=== PATIENT | female | born 1955 | race Caucasian/White ===

== ENCOUNTER → 2017-07-29 11:37 | Outpatient (CLI) | payer MEDICARE, SELFPAY ==
--- NOTE | 2017-07-29 11:37 | DT_ITS ---
This patient was seen during an EMR downtime July 28, 2017 - August 04, 2017. This patient may have a combination of paper and electronic documentation or all paper documentation. All documentation is viewable within the e-chart portion of [facility] for each patient visit.
[2017-08-04 17:49] LABS: Creatinine, Serum 0.49 mg/dL (0.55-1.02); EST Glomerular Filtration Rate 137 mL/min (>60); Est Glom Filt Rate - Afr Amer 166 mL/min (>60); Hematocrit 37.3 % (37-47); Hemoglobin 11.6 g/dl (12.0-15.0); Mean Corp Hgb Conc 31.1 g/gl (32-36); Mean Corpuscular Hgb 28.6 pg (27.0-32.0); Mean Corpuscular Volume 91.9 fL (81-99); Mean Platelet Vol. 11.3 fl (6.2-12.0); POSITIVE COUNT NO; POSITIVE DIFFERENTIAL NO; POSITIVE MORPHOLOGY NO; Platelet Count 135 K/mm3 (150-450); RBC Distribution Width CV 15.2 % (11.6-14.6); RBC Distribution Width SD 49.6 fl (35.1-43.9); Red Blood Count 4.06 M/mm3 (4.2-5.4); White Blood Count 7.2 K/mm3 (4.4-11.0)
[2017-08-04 17:50] LABS: Absolute Neutrophil Count 1.8 X10^3/uL (2.0-7.7); Basophil% 0.4 % (0-1); Eosinophils% 2.2 % (0-5); Lymphocyte # 1.77 X10^3/ul (4.0); Lymphocyte % 24.5 % (19-41); Monocyte% 6.2 % (0-10); Neutrophil % 66.4 % (47-70)
== END ==
PROVIDERS: Family Provider Family Medicine; PCP Family Medicine; Visit Provider Radiology Radiation Oncology
DX: Z01.818 Encounter for other preprocedural examination (principal); C25.0 Malignant neoplasm of head of pancreas
CPT/HCPCS: 36415; 82565; 85025

== ENCOUNTER → 2017-07-30 09:00 | Outpatient (CLI) | payer MEDICARE, SELFPAY ==
--- NOTE | 2017-07-30 09:00 | DT_ITS ---
This patient was seen during an EMR downtime July 28, 2017 - August 04, 2017. This patient may have a combination of paper and electronic documentation or all paper documentation. All documentation is viewable within the e-chart portion of [facility] for each patient visit.
--- NOTE | 2017-07-30 09:05 | CT_ITS ---
STUDY: CT ABDOMEN WITH CONTRAST REASON FOR EXAM: Female, 61 years old. PANCREATIC CANCEr-Radiation treatment planning scan RADIATION DOSAGE (If Supplied By Facility): CTDIvol = ( 22.48 ) mGy, DLP = ( 2603.91 ) mGycm TECHNIQUE: Transaxial images were obtained post I.V. administration of 100ml ml of Isovue 300 contrast, and with oral contrast. Sagittal and coronal images were reconstructed. Individualized dose optimization techniques were used for this CT. COMPARISON: 01.12.13 FINDINGS: The visualized lung bases are unremarkable. The visualized portions of the heart are within normal limits. There is intrahepatic ductal dilation. The gallbladder is contracted. There is dilation of the common bile duct. A common bile duct stone is not seen. Rectangular shaped area of low density in the right lobe of the liver measuring 19 x 7 mm. Wedge-shaped area of similar low density in the right lobe of the liver measuring 47 x 19 mm. Irregular shaped area of low density in the left lobe of the liver measuring 20 x 8.2 mm. Normal spleen. Dilation of the pancreatic duct. Diffuse atrophy of the pancreatic body and tail. 31 x 27 mm spiculated mass at the uncinate process of the pancreas. This appears to invade the proximal duodenum. Normal bilateral adrenal glands. Stable hypodensities of the right left kidney. Gastroduodenal stent in place. Normal small intestine. Stool throughout the colon. There is non-visualization of the appendix. There is a duodenal diverticulum. This is near the pancreatic head. There is diffuse atherosclerotic calcification of the abdominal aorta with elongation and tortuosity, but without a demonstrated aneurysm. Normal inferior vena cava. There is borderline retroperitoneal lymphadenopathy with enlarged nodes no greater than 10mm in the short axis diameter. Normal abdominal wall. Normal osseous structures. CT/Abdomen WITH IV Contrast IMPRESSION: Gastroduodenal stent in place. 31 x 27 mm spiculated mass at the uncinate process of the pancreas. This appears to invade the proximal duodenum. Stable renal cysts. Since prior CT scan has been development of 3 low-density lesions in the liver. Metastatic disease cannot be excluded. Constipation Electronically Signed: Arturo Marquez MD at 23:48 EDT , Service support ,
== END ==
PROVIDERS: Family Provider Family Medicine; PCP Family Medicine; Visit Provider Radiology Radiation Oncology
DX: C25.9 Malignant neoplasm of pancreas, unspecified (principal)
CPT/HCPCS: 74160; Q9967; A4216